=== PATIENT | male | born 1970 | race Caucasian/White ===

== ENCOUNTER 2023-06-06 11:06 | Outpatient (CLI) | payer OTHER, SELFPAY ==
[2023-06-06 18:32] LABS: Basophils Absolute Auto 0.1 K/mm3 (0.0-0.1); Basophils Percent Auto 0.7 % (0.2-1.2); Eosinophils Absolute Auto 0.2 K/mm3 (0-0.3); Eosinophils Percent Auto 3.1 % (0-4.4); Hematocrit 50.4 % (42.0-52.0); Hemoglobin 16.5 g/dL (14.0-18.0); Immature Granulocyte Absolute 0.04 K/mm3 (0.00-0.031); Immature Granulocyte Percent A 0.6 % (0-0.5); Lymphocytes Absolute Auto 1.81 K/mm3 (0.9-3.2); Lymphocytes Percent Auto 25.5 % (18.3-44.2); Mean Corpuscular HGB Conc 32.7 g/dl (32-36); Mean Corpuscular Hemoglobin 29.3 pg (26-34); Mean Corpuscular Volume 89.5 fl (80-100); Mean Platelet Volume 11.7 fl (7.4-10.4); Monocytes Absolute Auto 0.5 K/mm3 (0.1-0.6); Monocytes Percent Auto 7.5 % (2.6-8.5); Neutrophils Absolute Auto 4.4 K/mm3 (1.3-6.7); Neutrophils Percent Auto 62.6 % (45.5-73.1); Platelet Count Result 215 k/mm3 (150-375); Red Blood Count 5.63 M/mm3 (4.6-6.20); Red Cell Distribution Width 12.6 % (11.5-14.5); White Blood Count 7.1 K/mm3 (4.5-10.0)
[2023-06-06 18:57] LABS: Alanine Aminotransferase 48 U/L (6-50); Albumin Level 4.3 g/dL (3.5-5.1); Alkaline Phosphatase 99 U/L (38-126); Anion Gap 3 mmol/L (4-12); Aspartate Amino Transferase 37 U/L (17-59); Bilirubin,Total 0.8 mg/dL (0.2-1.3); Blood Urea Nitrogen 25 mg/dL (9-20); Calcium 9.4 mg/dL (8.4-10.2); Carbon Dioxide 30 mmol/L (22-30); Chloride 105 mmol/L (98-107); Cholesterol 214 mg/dL (0-200); Estimated Glomerular Filt Rate > 60; Glucose 113 mg/dL (65-110); HDL Direct 42 mg/dL; Potassium 4.2 mmol/L (3.4-5.0); Sodium 138 mmol/L (137-145); Triglycerides 147 mg/dL (<150)
[2023-06-06 19:08] LABS: LDL Cholesterol Direct 139 mg/dL
[2023-06-06 19:52] LABS: Hepatitis C Virus Antibody Negative (Negative)
[2023-06-06 20:09] LABS: Hemoglobin A1C 6.7 % (<5.7)
== END 2023-06-06 11:07 | disposition home or self-care (01) ==
LOC: ANHGOSHLAB 11:09
PROVIDERS: PCP Family Medicine; Visit Provider Family Medicine
DX: Z00.00 Encounter for general adult medical examination without abnormal findings (principal); Z11.59 Encounter for screening for other viral diseases
CPT/HCPCS: 36415; 80053; 80061; 83036; 84443; 85025; 86803

== ENCOUNTER 2023-07-05 07:35 | Day surgery (SDC) | payer OTHER, SELFPAY ==
[2023-07-05] VITALS (9 sets, daily range): BP systolic 109–150; BP diastolic 51–101; PULSE 64–87; RESP 15–19; TEMP 36.1–36.6; O2SAT 99–100
--- NOTE | ~2023-07-05 | CT_ITS ---
EXAMINATION: CT abdomen pelvis w con DATE: 07/05/2023 09:04 INDICATION: Right flank pain TECHNIQUE: Computed tomography (CT) of the abdomen and pelvis was performed without intravenous contr ast. Automated exposure control and iterative reconstruction technique were employed. The dose-length product was 1737.50 mGy-cm. COMPARISON: None FINDINGS: Mild dependent atelectasis in the right lower lobe. Heart size is normal. Atherosclerotic 1 artery ca lcifications. No pericardial or pleural effusion. Diffuse hepatic steatosis with focal sparing along the gallbladder fossa. Gallbladder, pancreas and bilateral adrenal glands are normal. There are 4 low -attenuation splenic lesions with a simple fluid attenuation most likely either splenic cysts or kat ngiomas. There are parapelvic cysts at both kidneys. There is likely also hydronephrosis of the right kidney which is difficult to differentiate from the parapelvic cysts. 15 x 7 x 6 mm stone at the rig ht ureteropelvic junction. There is an additional 5 x 3 mm density consistent with a stone at the rig ht ureterovesicular junction but with no more proximal hydroureter. There is mild colonic diverticulo sis with a sigmoid predominance. There is no adjacent inflammatory change to suggest diverticulitis. Small bowel and appendix are normal. No pathologically enlarged abdominal or pelvic lymphadenopathy. Small fat-containing left inguinal hernia. Moderate to severe lumbar spondylosis. IMPRESSION: 1. Right-sided urolithiasis with 15 x 7 x 6 mm on the right ureteropelvic junction and 5 x 3 mm stone at the ureterovesicular junction. There is likely at least mild right hydronephrosis although assess ment is completed by multiple bilateral renal parapelvic cysts. 2. Diffuse hepatic steatosis. Reviewed, dictated and finalized at location A. IMPRESSION: 1. Right-sided urolithiasis with 15 x 7 x 6 mm on the right ureteropelvic junct ion and 5 x 3 mm stone at the ureterovesicular junction. There is likely at [address] mild right hydronephrosis although assessment is completed by multiple bilat eral renal parapelvic cysts. 2. Diffuse hepatic steatosis.
--- NOTE | ~2023-07-05 | XR_ITS ---
EXAMINATION: XR retrograde pyelo w/stent RT DATE: 07/05/2023 12:03 INDICATION: Right internal ureteral stent placement TECHNIQUE: Fluoroscopic images from a right internal ureteral stent placement are submitted for mady martins 51 seconds of fluoroscopy time. 33 fluoroscopic images. FINDINGS: There is a right double-J internal ureteral stent projecting in expected position, with proximal [place] loop at the level of the renal pelvis and distal loop in the pelvis within the bladder lumen. IMPRESSION: 1. Right internal ureteral stent placement. Please refer to real-time procedural findings for milind caruso. Reviewed, dictated and finalized at location B. IMPRESSION: 1. Right internal ureteral stent placement. Please refer to real-time procedu ral findings for details.
[2023-07-05 08:05] LABS: Basophils Percent Auto 0.2 % (0.2-1.2); Eosinophils Absolute Auto 0.1 K/mm3 (0-0.3); Eosinophils Percent Auto 0.6 % (0-4.4); Hematocrit 46.9 % (42.0-52.0); Hemoglobin 15.7 g/dL (14.0-18.0); Immature Granulocyte Absolute 0.05 K/mm3 (0.00-0.031); Immature Granulocyte Percent A 0.6 % (0-0.5); Lymphocytes Absolute Auto 0.81 K/mm3 (0.9-3.2); Lymphocytes Percent Auto 9.3 % (18.3-44.2); Mean Corpuscular HGB Conc 33.5 g/dl (32-36); Mean Corpuscular Hemoglobin 29.4 pg (26-34); Mean Corpuscular Volume 87.8 fl (80-100); Monocytes Absolute Auto 0.6 K/mm3 (0.1-0.6); Monocytes Percent Auto 6.4 % (2.6-8.5); Neutrophils Absolute Auto 7.2 K/mm3 (1.3-6.7); Neutrophils Percent Auto 82.9 % (45.5-73.1); Platelet Count Result 188 k/mm3 (150-375); Red Blood Count 5.34 M/mm3 (4.6-6.20); Red Cell Distribution Width 12.6 % (11.5-14.5); White Blood Count 8.7 K/mm3 (4.5-10.0)
[2023-07-05 08:23] LABS: Potassium 4.4 mmol/L (3.4-5.0)
[2023-07-05 08:24] LABS: Alanine Aminotransferase 37 U/L (6-50); Albumin Level 4.3 g/dL (3.5-5.1); Alkaline Phosphatase 100 U/L (38-126); Anion Gap 5 mmol/L (4-12); Aspartate Amino Transferase 28 U/L (17-59); Blood Urea Nitrogen 25 mg/dL (9-20); Calcium 9.2 mg/dL (8.4-10.2); Carbon Dioxide 25 mmol/L (22-30); Chloride 105 mmol/L (98-107); Estimated CRCL calculation 78 ml/min; Estimated Glomerular Filt Rate 42; Glucose 137 mg/dL (65-110); Sodium 135 mmol/L (137-145)
[2023-07-05 08:24] LABS: Appearance Urine Cloudy (Clear); Bacteria Urine None Seen /hpf; Bilirubin Urine Negative (Negative); Blood Urine 3+ (Negative); Color Urine Yellow (Yellow); Glucose Urine UA Negative (Negative); Ketones Urine 1+ mg/dL (Negative); Leukocyte Esterase Ur Trace LEU/UL (Negative); Nitrate Urine Negative (Negative); Non Pathogenic Casts 0-2; Protein Urine Trace mg/dL (Negative); Specific Grav Ur 1.024 (1.001-1.035); Squamous Epithelial Cell Urine Occasional /hpf (Few); Uric Acid Crystals Urine Present /hpf; Urobilinogen Urine 0.2 mg/dL (<2.0); pH Urine 5.5 (5.0-9.0)
[2023-07-05 08:29] LABS: Add Urine Microscopic? YES
--- NOTE | 2023-07-05 08:31 | ED.MALEGU ---
HPI - Male Genitourinary General Chief complaint: Urogenital-Male Stated complaint: Kidney stone Time Seen by Provider: 07/05/23 08:30 Source: patient and other (fiance) Limitations: no limitations History of Present Illness HPI Narrative: Patient presents with right flank pain of 2 days duration. He describes it as sharp in nature and radiating to his abdomen and into his groin. He has noticed decreased urinary stream. He has no history of kidney stones. He denies any penile discharge. He notes that he did have some hematuria last week which then resolved. He denies any dysuria, urgency, frequency, rectal pain, or fever. Of note, patient is engaged and wedding planned for tomorrow, 07/06/2023 at [facility] [place]. Related Data Allergies Allergy/AdvReac Type Severity Reaction Status Date / Time latex AdvReac Mild Rash Verified 07/05/23 11:18 PMFSH Past Medical History Medical History Allergies Family History Family History Father Hypertension Diabetes mellitus Mother Diabetes mellitus Hypertension Social History Social History (Updated 07/05/23 @ 20:08 by Inessa Gonsalez MD) Smoking packs per day: 0 Smoking cigarettes per day: 0.0 Smoking status: Never smoker (cigarettes, nicotine products) Second hand tobacco smoke exposure: No Alcohol intake: current Drinks per week: 2 Alcohol use details: pt wants to 2- 3 a week bourbon Substance use: unknown Do You Feel Safe in your Home?: Yes Lack of Transportation: No Lack of Food: Never True Current Housing: I Have Housing Concerned About Future Housing: No Difficulty Paying Gas/Electric Bills: No Difficulty Paying for Meds: No Currently Unemployed: No Education: Bachelor's Degree Difficulty w/ Childcare or Family Care: No Gender identity (if verbalized by the patient): Male Additional gender identity comments: engaged Sexual Orientation (if Verbalized by the Patient): Straight or Heterosexual Exam Narrative: GENERAL: Well-appearing, well-nourished, does appear in moderate acute distress. HEAD: Normocephalic, atraumatic. EYES: Non injected, non icteric ENT: Nares clear, no rhinorrhea or epistaxis. NECK: Supple. CHEST: Speaking in full sentences. No respiratory distress. : No CVA tenderness bilaterally HEART: Regular rate and rhythm. . ABDOMEN: Soft, nondistended. EXTREMITIES: Normal range of motion. No edema. SKIN: Warm, dry, no rash. NEURO: No focal deficits. Alert and oriented x3. PSYCH: Normal mood and affect. Course Vital Signs Vital signs: Vital Signs Temperature 97.9 F 07/05/23 07:42 Pulse Rate 87 07/05/23 07:42 Respiratory Rate 18 07/05/23 07:42 Blood Pressure 141/101 H 07/05/23 07:42 Pulse Oximetry 99 07/05/23 07:42 Oxygen Delivery Room Air 07/05/23 07:42 Temperature 97.0 F L 07/05/23 12:10 Pulse Rate 65 07/05/23 13:40 Respiratory Rate 16 07/05/23 13:40 Blood Pressure 138/90 07/05/23 13:40 Pulse Oximetry 100 07/05/23 12:55 Oxygen Delivery Room Air 07/05/23 13:40 Oxygen Flow Rate 6 07/05/23 12:25 MDM - Male Genitourinary MDM Narrative Medical decision making narrative: Patient presents with right flank pain of 2 days duration radiating to his abdomen in his groin. In the emergency department he is afebrile with vital signs notable for hypertension. I do have significant concern for kidney stone based on symptoms. CBC unremarkable. He has evidence of an ELVIA. 2 L IV fluids ordered as is pain medication and CT imaging. Urinalysis with hematuria. CT notable for 2 stones, 1 that is smaller and likely the cause of his pain and [address] large[address] Dean, on-call urologist is consulted. Patient is taken to the operating room from the emergency department without plans at the time of admission to follow. Stable
[2023-07-05] MEDS: SODIUM CHLORIDE 0.9% IV 1,000 ML 999 ML IV CONT ×2 (08:39)
[2023-07-05] MEDS: MORPHINE SULFATE (*CRX) 4 MG/ML INJ IV PUSH (08:40)
[2023-07-05] MEDS: HYDROmorphone HCL INJ (*CRX) 1 MG/ML SYR 0.5 MG IV PUSH (09:49)
--- NOTE | 2023-07-05 10:59 | PM.HPGS ---
History of Present Illness History of Present Illness Consent: Risks, benefits, and alternatives have been discussed and questions answered. Patient agrees to proceed with procedure. Chief complaint: Kidney stone Narrative: Hossein Mccarthy is a 53 year old male without prior history of urolithiasis presents to the ER with severe right flank pain radiating to his right lower quadrant. It has been associated with some nausea but no vomiting. He has had no fever chills or gross hematuria. Imaging demonstrates a large 15 mm right UPJ stone in small partially obstructing 5 mm right distal ureteral stone. After discussion of options he elects for cystoscopy with right ureteral stone extraction and right ureteral stent placement. He is aware that he will need additional procedures for the larger proximal ureteral stone. This will allow him to, hopefully, go ahead with his plans for getting tomorrow. Review of Systems Review of Systems: All systems reviewed & are unremarkable except as noted in HPI and below PMFSH Past Medical History Medical History Allergies Family History Family History Father Hypertension Diabetes mellitus Mother Diabetes mellitus Hypertension Social History Social History (Updated 06/13/23 @ 11:55 by Radha Ellington MA) Smoking packs per day: 0 Smoking cigarettes per day: 0.0 Smoking status: Never smoker (cigarettes, nicotine products) Second hand tobacco smoke exposure: No Alcohol intake: current Drinks per week: 2 Alcohol use details: pt wants to 2- 3 a week bourbon Substance use: unknown Do You Feel Safe in your Home?: Yes Lack of Transportation: No Lack of Food: Never True Current Housing: I Have Housing Concerned About Future Housing: No Difficulty Paying Gas/Electric Bills: No Difficulty Paying for Meds: No Currently Unemployed: No Education: Bachelor's Degree Difficulty w/ Childcare or Family Care: No Meds Home Medications and Allergies Home Medications Medication Instructions Recorded Confirmed Type sildenafil (pulm.hypertension) 20 20 mg PO .PRN #60 tabs 06/06/23 06/13/23 Rx mg tablet atorvastatin 20 mg tablet 20 mg PO QHS #90 tabs 06/13/23 06/13/23 Rx blood-glucose meter,continuous #1 ea 06/13/23 06/13/23 Rx (FreeStyle Nery 3 [place]) blood-glucose sensor (FreeStyle #6 ea 06/13/23 06/13/23 Rx Nery 3 Sensor device) lisinopril 5 mg tablet 10 mg PO DAILY #90 tabs 06/13/23 06/13/23 Rx mecobalamin (vitamin B12) 1,000 1,000 mcg PO DAILY #90 tabs 06/13/23 06/13/23 Rx mcg chewable tablet metformin 500 mg tablet,extended See Rx Instructions PO DAILY #90 06/13/23 06/13/23 Rx release 24 hr tabs tirzepatide 2.5 mg/0.5 mL 2.5 mg (0.5 mL) subcut WEEKLY 4 06/13/23 06/13/23 Rx subcutaneous pen injector weeks #2 mL (Dawn) Allergies Allergy/AdvReac Type Severity Reaction Status Date / Time latex AdvReac Mild Rash Verified 07/05/23 07:35 Vital Signs Vital Signs - 24 hr 07/05/23 07:42 07/05/23 09:49 Temperature 97.9 F Pulse Rate 87 64 Respiratory Rate 18 19 Blood Pressure 141/101 H 142/85 H Pulse Oximetry 99 100 Oxygen Delivery Room Air Exam Const: General: no acute distress Resp: Effort & Inspection: normal respiratory effort GI: Inspection: non-distended GI Palp: No abdominal tenderness and No Guarding due to palpation present (GI) Auscultation: normal bowel sounds Assessment and Plan Assessment and plan (1) Right ureteral calculus: Code(s): N20.1 - Calculus of ureter Status: Acute Assessment and Plan: Cystoscopy, right ureteroscopy with distal ureteral stone extraction, right ureteral stent placement.
--- NOTE | 2023-07-05 11:01 | WPDHPUPDATE1 ---
History and Physical Update Update Date/Time: 07/05/23 11:01 History and Physical has been reviewed, including an updated exam of the patient. There are NO changes in the patient's condition. Risks, benefits, and alternatives have been discussed and questions answered. Patient agrees to proceed with procedure.
--- NOTE | 2023-07-05 11:17 | WPDANESEPPF ---
Anes - Initial Pre Proc Eval Procedure: Operation Date: 07/05/23 16:30 Proposed Procedures p Cystoscopy, Right Ureteroscopy, Right Ureteral Stent Placement, Stone Extraction - Tio Moreno MD Date/Time: 07/05/23 11:17 Surgeon: Tio Moreno MD Pre Op Diagnosis: Kidney stone Patient Data Age: 53 Gender: M Height: 2.01 m Weight: 168 kg Last Vital Signs Temp 97.9 F 07/05/23 07:42 Pulse 64 07/05/23 09:49 Resp 19 07/05/23 09:49 BP 142/85 H 07/05/23 09:49 Pulse Ox 100 07/05/23 09:49 O2 Del Method Room Air 07/05/23 07:42 Allergies Allergy/AdvReac Type Severity Reaction Status Date / Time latex AdvReac Mild Rash Verified 07/05/23 11:18 Home Medications Medication Instructions Recorded Confirmed Type sildenafil (pulm.hypertension) 20 20 mg PO .PRN #60 tabs 06/06/23 06/13/23 Rx mg tablet atorvastatin 20 mg tablet 20 mg PO QHS #90 tabs 06/13/23 06/13/23 Rx blood-glucose meter,continuous #1 ea 06/13/23 06/13/23 Rx (FreeStyle Nery 3 [place]) blood-glucose sensor (FreeStyle #6 ea 06/13/23 06/13/23 Rx Nery 3 Sensor device) lisinopril 5 mg tablet 10 mg PO DAILY #90 tabs 06/13/23 06/13/23 Rx mecobalamin (vitamin B12) 1,000 1,000 mcg PO DAILY #90 tabs 06/13/23 06/13/23 Rx mcg chewable tablet metformin 500 mg tablet,extended See Rx Instructions PO DAILY #90 06/13/23 06/13/23 Rx release 24 hr tabs tirzepatide 2.5 mg/0.5 mL 2.5 mg (0.5 mL) subcut WEEKLY 4 06/13/23 06/13/23 Rx subcutaneous pen injector weeks #2 mL (Mounmelidaro) Laboratory Tests 07/05/23 07/05/23 07:53 07:57 WBC 8.7 K/mm3 (4.5-10.0) RBC 5.34 M/mm3 (4.6-6.20) Hgb 15.7 g/dL (14.0-18.0) Hct 46.9 % (42.0-52.0) MCV 87.8 fl (80-100) MCH 29.4 pg (26-34) MCHC 33.5 g/dl (32-36) RDW 12.6 % (11.5-14.5) Plt Count 188 k/mm3 (150-375) MPV 11.0 H fl (7.4-10.4) Immature Gran % (Auto) 0.6 H % (0-0.5) Neut % (Auto) 82.9 H % (45.5-73.1) Lymph % (Auto) 9.3 L % (18.3-44.2) [place] % (Auto) 6.4 % (2.6-8.5) Eos % (Auto) 0.6 % (0-4.4) Baso % (Auto) 0.2 % (0.2-1.2) Lymph # (Auto) 0.81 L K/mm3 (0.9-3.2) [place] # (Auto) 0.6 K/mm3 (0.1-0.6) Eos # (Auto) 0.1 K/mm3 (0-0.3) Baso # (Auto) 0.0 K/mm3 (0.0-0.1) Abs Immat Gran (auto) 0.05 H K/mm3 (0.00-0.031) Absolute Neuts (auto) 7.2 H K/mm3 (1.3-6.7) Absolute Nucleated RBC 0.000 K/mm3 (0.0-0.012) Nucleated RBC % 0.0 % (0.0-0.2) Sodium 135 L mmol/L (137-145) Potassium 4.4 mmol/L (3.4-5.0) Chloride 105 mmol/L (98-107) Carbon Dioxide 25 mmol/L (22-30) Anion Gap 5 mmol/L (4-12) BUN 25 H mg/dL (9-20) Creatinine 1.70 H mg/dL (0.7-1.3) Estim Creat Clear Calc 78 ml/min Estimated GFR 42 L (59 - ) Glucose 137 H mg/dL (65-110) Calcium 9.2 mg/dL (8.4-10.2) Total Bilirubin 1.0 mg/dL (0.2-1.3) AST 28 U/L (17-59) ALT 37 U/L (6-50) Alkaline Phosphatase 100 U/L (38-126) Total Protein 8.0 g/dL (6.3-8.2) Albumin 4.3 g/dL (3.5-5.1) Urine Color Yellow (Yellow) Urine Appearance Cloudy H (Clear) Urine pH 5.5 (5.0-9.0) Ur Specific [place] 1.024 (1.001-1.035) Urine Protein Trace mg/dL (Negative) Urine Glucose (UA) Negative mg/dL (Negative) Urine Ketones 1+ H mg/dL (Negative) Ur Blood (Man) 3+ H (Negative) Urine Nitrate Negative (Negative) Urine Bilirubin Negative (Negative) Urine Urobilinogen 0.2 mg/dL (<2.0) Leukocyte Esterase Rfl Trace H MIKEY/UL (Negative) Urine RBC 11-20 H /hpf (0-2) Urine WBC 6-10 H /hpf (0-3) Ur Squamous Epith Cells Occasional /hpf (Few) Uric Acid Crystals Present H /hpf
[2023-07-05] MEDS: LACTATED RINGERS 1,000 ML 30 ML IV CONT (11:20)
[2023-07-05] MEDS: LIDOCAINE HCL 2% GEL UROJET 10 ML PKG MUCOUS MEM (11:57)
--- NOTE | 2023-07-05 12:09 | W.PM.PROC2 ---
Procedure Note - Detailed Date of Procedure 07/05/23 Pre-op Diagnosis Right ureteral stones (15 mm proximal / 5mm distal) Post-op Diagnosis Other (1. 15 mm right proximal ureteral stone 2. No distal ureteral stones 3. BPH with multiple small bladder stones) Procedure Performed Cystoscopy, right retrograde pyelography, right ureteroscopy, right ureteral stent placement Surgeon Tio Moreno MD Anesthesia General Description of Procedure patient is brought to the operative suite was prepped draped in routine sterile fashion while in dorsal lithotomy position after the uneventful induction of a general anesthetic. Cystoscopy was undertaken with 19 F rigid cystoscope. He has no urethral strictures but notable lateral lobe hyperplasia with a 2.5 cm prostatic urethra. In the bladder there were multiple tiny stones consistent with small bladder stones. The remainder the bladder was unremarkable without mucosal hyperemia. There was no intravesical neoplasm. He has a single orthotopic ureteral orifice bilaterally. A 0.035 in glidewire was advanced into the right renal pelvis and the distal ureter was dilated with an 8 F 10 F dilator. Distal ureteroscopy was undertaken with a short tapered semi-rigid ureteral scope. There are no identifiable distal ureteral stones and I think what had been interpreted on his recent CT is a distal ureteral stone is probably 1 of the small bladder stones. I did perform a right retrograde pyelogram to ensure placement on 4.8 F variable length stent with the proximal coil above his large right proximal ureteral stone in the renal pelvis the distal coil in the bladder. Scopes wires removed and he was taken recovery room good condition. Drains Yes Packing No Pathology None sent Complications No immediate complications
[2023-07-05 13:09] LABS: Glucose Point of Care 130 mg/dl (65-105)
== END 2023-07-05 13:53 | disposition home or self-care (01) ==
LOC: ANHED 10:37 → ANHSURGERY 10:52
PROVIDERS: Emergency Provider Student in an Organized Health Care Education/Training Program; PCP Family Medicine; Visit Provider Urology
PROC: (CPT 52352; principal; 2023-07-05 16:30)
DX: N20.1 Calculus of ureter (principal); N17.9 Acute kidney failure, unspecified; N39.0 Urinary tract infection, site not specified; N40.0 Benign prostatic hyperplasia without lower urinary tract symptoms; N21.0 Calculus in bladder; Z79.84 Long term (current) use of oral hypoglycemic drugs; Z79.85 Long-term (current) use of injectable non-insulin antidiabetic drugs; E66.01 Morbid (severe) obesity due to excess calories; Z68.41 Body mass index [BMI] 40.0-44.9, adult
CPT/HCPCS: 52332; 36415; 74177; 74420; 80053; 81001; 82948; 85025; 87086; 96365; 96375; 99285; C1769; C2617; J0696; J1170; J1885; J2250; J2270; J2405; J2704; J3010; J7030; J7120; Q9966; Q9967

== ENCOUNTER 2023-07-16 09:41 | Outpatient (CLI) | payer OTHER, SELFPAY ==
--- NOTE | 2023-07-16 10:05 | ECG_ITS ---
SEE SCANNED COPY FOR CONFIRMED REPORT MTDD
[2023-07-16 10:35] LABS: Prothrombin Time 13.5 Seconds (11.1-14.7)
[2023-07-16 10:36] LABS: Partial Thromboplastin Time 27.1 Seconds (22.3-36.8)
== END 2023-07-16 09:42 | disposition home or self-care (01) ==
LOC: ANHSURGERY 09:46
PROVIDERS: PCP Family Medicine; Visit Provider Urology
DX: N20.1 Calculus of ureter (principal); I10 Essential (primary) hypertension; Z01.818 Encounter for other preprocedural examination
CPT/HCPCS: 36415; 85610; 85730; 93005

== ENCOUNTER 2023-07-19 01:29 | Day surgery (SDC) | payer OTHER, SELFPAY ==
[2023-07-12 09:13] VITALS: BMI 41.7
--- NOTE | 2023-07-12 09:18 | PC.NURSE ---
Addendum entered by Silvia Flowers RN 07/13/23 10:46: May take pain pill (hydrocodone) morning of surgery with a small sip of water if needed. Follow instructions from Dr. Moreno/office regarding ketorolac. Original Note: Report to the Outpatient Waiting Room, entrance under the green pavilion located off [facility], at time _1200__ on date _07/19/23_. Planned Procedure Time: _1400. Time changes happen often and if your time is changed the preop area will call you the afternoon before. - You and your visitor will be asked to self-screen and do not enter if you have any COVID symptoms. - A mask is optional within the hospital at this time. Patients may have clear liquids (water, carbonated beverages, clear teas, apple juice) until 3 hours prior to surgery with a maximum of 20 ounces. - No food from midnight until time of surgery - Infants may have breast milk until 4 hours before surgery, infant formula 6 hours prior to surgery. - Children will be allowed to drink immediately following surgery. If applicable, please bring a bottle or sippy cup to assist with drinking. Juice, water, soda, and popsicles are readily available. For infants on formula, please bring formula the day of surgery. Pacifiers are allowed. Take the following medications with a SIP of water the morning of surgery: ____NONE DO NOT STOP ANY OF YOUR OTHER PRESCRIPTION MEDICATIONS PRIOR TO SURGERY ?EXCEPT THE FOLLOWING Medications to discontinue per physician HAS NOT STARTED VITAMIN YET Date to take last dose Please no make-up, nail uzbek, hairspray, perfume, deodorant, or body powder the day of surgery. No jewelry (including any body piercings) or valuables the day of surgery, leave them at home. Please take a shower or bath the night before, or the morning of, surgery with an antibacterial soap. Wear comfortable, loose fitting clothing. Children are encouraged to wear pajamas. - Jewelry must be removed prior to entering the operating room. Rings and piercings that are not removed may be cut off. - The hospital will not accept responsibility for valuables. - Please leave all valuables, including medications, at home the day of surgery. If you are going home after surgery, a licensed wagon driver must drive you home. - NO public transportation without another adult if you receive anesthesia. - We recommend that an adult stay with you for 24 hours following discharge. - We also recommend that you do not drive, make important decision, drink alcoholic beverages, or take any drugs that were not prescribed by your health care provider for at least 24 hours after your discharge time. For Pediatric surgeries, we recommend two adults accompany the child home. Follow any additional instructions given to you from your surgeon. If you or anyone in your household have experienced Covid symptoms in the past week, please notify your surgeon or the nurse liaison at the phone number below for possible testing. Telephone instructions given to DORIAN__and asked if any additional questions and then verbalized understanding. Patient advised to call surgeon office or pre surgery nurse liaison [phone] if any additional questions.
--- NOTE | 2023-07-13 07:26 | PM.HPGS ---
History of Present Illness History of Present Illness Consent: Risks, benefits, and alternatives have been discussed and questions answered. Patient agrees to proceed with procedure. Chief complaint: right kidney stone Narrative: Hossein Mccarthy is a 53 year old male recently presented to the emergency department on the day prior to his scheduled waiting with a painful obstructing distal ureteral calculus and larger proximal ureteral calculus. We took him to the OR and did extraction of bladder and possible distal ureteral stones with placement of right ureteral stent. He now presents for definitive management of the larger stone his right kidney. He is aware the risks include, not limited to, need for additional procedures, hematuria, perinephric hematoma Review of Systems Cardiovascular: Cardiovascular: Denies chest pain, Denies lightheadedness, Denies palpitations and Denies dyspnea Respiratory: Respiratory: Denies dyspnea Gastrointestinal: Gastrointestinal: Denies diarrhea, Denies nausea and Denies vomiting Genitourinary: Genitourinary: Denies hematuria and Denies dysuria Endocrine: Endocrine: Denies palpitations PMFSH Past Medical History Medical History Allergies Family History Family History Father Hypertension Diabetes mellitus Mother Diabetes mellitus Hypertension Social History Social History (Updated 07/05/23 @ 20:08 by Inessa Gonsalez MD) Smoking packs per day: 0.5 Smoking cigarettes per day: 10.0 Years smoked: 6 Smoking pack-years: 3.00 Smoking status: Former smoker Tobacco type: cigarettes Second hand tobacco smoke exposure: No Alcohol intake: current Drinks per week: 2 Alcohol use details: 2 PER MONTH Substance use: never Do You Feel Safe in your Home?: Yes Lack of Transportation: No Lack of Food: Never True Current Housing: I Have Housing Concerned About Future Housing: No Difficulty Paying Gas/Electric Bills: No Difficulty Paying for Meds: No Currently Unemployed: No Education: Bachelor's Degree Difficulty w/ Childcare or Family Care: No Living arrangements: with family Gender identity (if verbalized by the patient): Male Additional gender identity comments: engaged Sexual Orientation (if Verbalized by the Patient): Straight or Heterosexual Meds Home Medications and Allergies Home Medications Medication Instructions Recorded Confirmed Type sildenafil (pulm.hypertension) 20 20 mg PO .PRN #60 tabs 03/27/24 05/02/24 Rx mg tablet blood-glucose meter,continuous #1 ea 06/13/23 06/13/23 Rx (FreeStyle Nery 3 [place]) blood-glucose sensor (FreeStyle #6 ea 06/13/23 06/13/23 Rx Nery 3 Sensor device) mecobalamin (vitamin B12) 1,000 1,000 mcg PO DAILY #90 tabs 06/13/23 07/12/23 Rx mcg chewable tablet hydrocodone 5 mg-acetaminophen 325 1 - 2 tablet PO Q6H PRN severe 07/05/23 07/12/23 Rx mg tablet pain (scale score 7-10) #20 tabs ketorolac 10 mg tablet 10 mg PO Q6H PRN Moderate Pain 07/05/23 07/12/23 Rx (Scale Score 5-6) 5 days #20 tabs ondansetron HCl 8 mg tablet 8 mg PO Q8H PRN nausea and 07/05/23 07/12/23 Rx vomiting #12 tabs lisinopril 5 mg tablet 5 mg PO DAILY 07/12/23 07/12/23 History Allergies Allergy/AdvReac Type Severity Reaction Status Date / Time latex AdvReac Mild Rash Verified 07/12/23 09:05 Exam Const: General: no acute distress Resp: Effort & Inspection: normal respiratory effort GI: Inspection: non-distended GI Palp: No abdominal tenderness and No Guarding due to palpation present (GI) Auscultation: normal bowel sounds Assessment and Plan Assessment and plan (1) Urolithiasis: Code(s): N20.9 - Urinary calculus, unspecified Status: Acute (2) Right ureteral calculus: Code(s): N20.1 - Calculus of ureter Status: Acute As
--- NOTE | ~2023-07-19 | XR_ITS ---
EXAMINATION: XR abdomen/kub 1V DATE: 07/19/2023 12:11 INDICATION: Kidney stone. TECHNIQUE: A supine view of the abdomen on 2 radiographs was obtained. COMPARISON: CT abdomen and pelvis 07/05/2023 FINDINGS: There are no dilated loops of bowel. There is a right internal ureteral stent in expected p osition. There are phleboliths in the pelvis. IMPRESSION: 1. No visible urolithiasis. Right internal ureteral stent in expected position. Reviewed, dictated and finalized at location A.
--- NOTE | 2023-07-19 06:18 | WPDHPUPDATE1 ---
History and Physical Update Update Date/Time: 07/19/23 06:18 History and Physical has been reviewed, including an updated exam of the patient. There are NO changes in the patient's condition. Risks, benefits, and alternatives have been discussed and questions answered. Patient agrees to proceed with procedure.
[2023-07-19 12:40] VITALS: BP 124/104; PULSE 93; RESP 14; TEMP 36.6; O2SAT 98
--- NOTE | 2023-07-19 12:53 | WPDANESEPPF ---
Anes - Initial Pre Proc Eval Procedure: Operation Date: 07/19/23 15:00 Proposed Procedures p Right Extracorporeal Shock Wave Lithotripsy, - Tio Moreno MD s Cystoscopy, Right Stent Removal/Replacement - Toi Moreno MD Date/Time: 07/19/23 12:53 Surgeon: Tio Moreno MD Pre Op Diagnosis: right kidney stone Patient Data Age: 53 Gender: M Height: 2.01 m Weight: 168.3 kg Last Vital Signs Temp 36.6 C 07/19/23 12:40 Pulse 93 07/19/23 12:40 Resp 14 07/19/23 12:40 BP 124/104 H 07/19/23 12:40 Pulse Ox 98 07/19/23 12:40 O2 Del Method Room Air 07/19/23 12:40 Allergies Allergy/AdvReac Type Severity Reaction Status Date / Time latex AdvReac Mild Rash Verified 07/12/23 09:05 Home Medications Medication Instructions Recorded Confirmed Type sildenafil (pulm.hypertension) 20 20 mg PO .PRN #60 tabs 06/06/23 07/12/23 Rx mg tablet blood-glucose meter,continuous #1 ea 06/13/23 06/13/23 Rx (FreeStyle Nery 3 [place]) blood-glucose sensor (FreeStyle #6 ea 06/13/23 06/13/23 Rx Nery 3 Sensor device) mecobalamin (vitamin B12) 1,000 1,000 mcg PO DAILY #90 tabs 06/13/23 07/12/23 Rx mcg chewable tablet hydrocodone 5 mg-acetaminophen 325 1 - 2 tablet PO Q6H PRN severe 07/05/23 07/12/23 Rx mg tablet pain (scale score 7-10) #20 tabs ketorolac 10 mg tablet 10 mg PO Q6H PRN Moderate Pain 07/05/23 07/12/23 Rx (Scale Score 5-6) 5 days #20 tabs ondansetron HCl 8 mg tablet 8 mg PO Q8H PRN nausea and 07/05/23 07/12/23 Rx vomiting #12 tabs lisinopril 5 mg tablet 5 mg PO DAILY 07/12/23 07/12/23 History Patient hx anesthesia problems: none Family hx anesthesia problems: none Results Review: All pre-operative results and documents have been reviewed as part of the pre-operative evaluation. [facility] Past Medical History Medical History (Updated 07/19/23 @ 12:53 by Oleksandr Arredondo MD) Allergies BMI 40.0-44.9, adult Essential hypertension Type 2 diabetes mellitus with hyperglycemia Surgical History Surgical History (Updated 07/19/23 @ 12:53 by Oleksandr Arredondo MD) Hx of cystoscopy Family History Family History Father Hypertension Diabetes mellitus Mother Diabetes mellitus Hypertension Social History Social History Smoking packs per day: 0.5 Smoking cigarettes per day: 10.0 Years smoked: 6 Smoking pack-years: 3.00 Smoking status: Former smoker Tobacco type: cigarettes Second hand tobacco smoke exposure: No Alcohol intake: current Drinks per week: 2 Alcohol use details: 2 PER MONTH Substance use: never Do You Feel Safe in your Home?: Yes Lack of Transportation: No Lack of Food: Never True Current Housing: I Have Housing Concerned About Future Housing: No Difficulty Paying Gas/Electric Bills: No Difficulty Paying for Meds: No Currently Unemployed: No Education: Bachelor's Degree Difficulty w/ Childcare or Family Care: No Living arrangements: with family Gender identity (if verbalized by the patient): Male Additional gender identity comments: engaged Sexual Orientation (if Verbalized by the Patient): Straight or Heterosexual Anes - Eval Final PreProcedure Day of Procedure 07/19/23 12:53 Patient weight: morbidly obese Heart: regular rate and rhythm Lungs: clear to auscultation Airway: Mallampati scale class II Neurological: alert and oriented Last oral intake: >/= 8 hours ASA classification: III Emergent: no Anesthetic plan: proceed Anesthesia type and monitoring: general LMA and standard monitoring Results Review: All pre-operative results and documents have been reviewed as part of the pre-operative evaluation. Informed Consent: The patient's anesthetic plan and its attendant risks and benefits were discussed with the patient/family/POA. Questions were solicited and answers provide
[2023-07-19 12:54] LABS: Glucose Point of Care 109 mg/dl (65-105)
[2023-07-19] MEDS: LACTATED RINGERS 1,000 ML 30 ML IV CONT (12:59)
[2023-07-19] MEDS: ceFAZolin 3 GM/D5W 100 ML 100 ML IVPB (13:31)
[2023-07-19] MEDS: LIDOCAINE HCL 2% GEL UROJET 10 ML PKG MUCOUS MEM (13:57)
--- NOTE | 2023-07-19 14:07 | W.PM.PROC2 ---
Procedure Note - Detailed Date of Procedure 07/19/23 Pre-op Diagnosis Rght kidney stone Post-op Diagnosis Same Procedure Performed Cystoscopy, right stent removal, right retrograde pyelogram, right ESWL, right stent replacement Surgeon Tio Moreno MD Anesthesia General Description of Procedure Patient is brought to the operative suite was prepped draped in routine sterile fashion while in a supine position. Cystoscopy was undertaken with a 16 F flexible cystoscope. The tip of the indwelling stent is grasped and brought to the external urethral meatus. A 0.035 in glidewire was advanced in the right renal pelvis under fluoroscopy. A [place] catheter was passed over the wire and used to obtain a retrograde pyelogram. His 15 mm stone is clearly identified as a filling defect in the renal pelvis. Total of 2500 shocks were delivered at a power setting up to 4. A 4.8 F right variable length ureteral stent was replaced with the proximal coil in the renal pelvis distal coil in the bladder. Scopes and wires removed and he was taken recovery room good condition Drains No Packing No Pathology None sent Complications No immediate complications Condition Stable
[2023-07-19 14:30] VITALS: BP 126/74; PULSE 66; RESP 17; TEMP 36.1; O2SAT 100
[2023-07-19 14:38] LABS: Glucose Point of Care 99 mg/dl (65-105)
[2023-07-19 14:45] VITALS: BP 140/82; PULSE 71; RESP 12; O2SAT 96
[2023-07-19 14:57] VITALS: BP 134/78; PULSE 66; RESP 12; O2SAT 96
[2023-07-19 15:01] VITALS: BP 144/93; PULSE 60; RESP 14
[2023-07-19 15:30] VITALS: BP 140/88; PULSE 60; RESP 20
== END 2023-07-19 15:35 | disposition home or self-care (01) ==
PROVIDERS: PCP Family Medicine; Visit Provider Urology
PROC: (CPT 50590; principal; 2023-07-19 15:00)
PROC: (CPT 52352; 2023-07-19 15:00)
DX: N20.0 Calculus of kidney (principal); I10 Essential (primary) hypertension; E11.65 Type 2 diabetes mellitus with hyperglycemia; E66.01 Morbid (severe) obesity due to excess calories; Z68.41 Body mass index [BMI] 40.0-44.9, adult; Z79.891 Long term (current) use of opiate analgesic; Z87.891 Personal history of nicotine dependence
CPT/HCPCS: 50590; 52332; 36415; 74018; 82948; 85610; 85730; 93005; C1758; C1769; C2617; J0690; J2250; J3010; J7030; J7120; Q9966

== ENCOUNTER 2023-08-03 13:43 | Outpatient (CLI) | payer OTHER, SELFPAY ==
--- NOTE | ~2023-08-03 | CT_ITS ---
EXAMINATION: CT abdomen pelvis wo con DATE: 08/03/2023 14:19 INDICATION: Kidney stone TECHNIQUE: Computed tomography (CT) of the abdomen and pelvis was performed without intravenous contr ast. Automated exposure control and iterative reconstruction technique were employed. The dose-length product was 1443.35 mGy-cm. COMPARISON: None FINDINGS: Lung bases are clear. Heart size is normal. Atherosclerotic coronary artery calcific lesion. No peric ardial or pleural effusion. Diffuse hepatic steatosis with focal sparing along the gallbladder fossa. No interval change in a few low-attenuation lesions of the spleen measuring up to 2 cm likely either cysts or hemangiomas. Gallbladder, pancreas and bilateral adrenal glands are normal. There are multi ple parapelvic cysts at both kidneys. Right internal ureteral stent with loops formed in the bladder and right renal pelvis. 8 x 7 mm irregular stone or more likely cluster of stone fragments within add itional 3 mm likely stone fragment at a couple calyces at the lower pole of the right kidney. No uret eral stones seen along the right internal ureteral stent. No left-sided urolithiasis. Mild scattered diverticulosis without adjacent from trace stranding to suggest diverticulitis. Small bowel and appen river are normal. The latter is normal. Small fat-containing bilateral direct inguinal hernias. No free intraperitoneal gas or fluid. No pathologically enlarged abdominal or pelvic lymphadenopathy. Modera te to severe lumbar and lower thoracic spondylosis. IMPRESSION: 1. Interval placement of a right internal ureteral stent with a few stones or more likely stone fragm ents at the lower pole calyces of the right kidney. No residual stones along the right ureter. 2. Likely resolution of the prior right hydronephrosis although assessment is somewhat comp care by t he presence of multiple bilateral peripelvic cysts. 3. Diffuse hepatic steatosis. Reviewed, dictated and finalized at location A. IMPRESSION: 1. Interval placement of a right internal ureteral stent with a few stones or m ore likely stone fragments at the lower pole calyces of the right kidney. No re sidual stones along the right ureter. 2. Likely resolution of the prior right hydronephrosis although assessment is s omewhat comp care by the presence of multiple bilateral peripelvic cysts. 3. Diffuse hepatic steatosis.
== END 2023-08-03 13:44 | disposition home or self-care (01) ==
LOC: ANHIMG 13:44
PROVIDERS: PCP Family Medicine; Visit Provider Urology
DX: N20.0 Calculus of kidney (principal); Z96.0 Presence of urogenital implants; K76.0 Fatty (change of) liver, not elsewhere classified; N13.30 Unspecified hydronephrosis
CPT/HCPCS: 74176

== ENCOUNTER 2023-08-17 14:21 | Emergency (ER) | payer OTHER, SELFPAY ==
--- NOTE | ~2023-08-17 | CT_ITS ---
EXAMINATION: CT abdomen pelvis wo con DATE: 08/17/2023 15:26 INDICATION: Right flank pain. TECHNIQUE: Computed tomography (CT) of the abdomen and pelvis was performed without intravenous contr ast. Automated exposure control and iterative reconstruction technique were employed. The dose-length product was 1676.84 mGy-cm. COMPARISON: CT abdomen and pelvis 08/03/2023, 07/05/23 FINDINGS: The visualized portions of the lung bases demonstrate mild atelectasis. No pleural effusion . The heart size is normal. No pericardial effusion. There is diffuse hepatic steatosis. There are mu ltiple hypodense masses in the spleen measuring up to 1.9 cm, likely granulomatous disease. The gallb ladder, pancreas, and adrenal glands are normal. There are peripelvic cysts in the kidneys measuring up to 3.6 cm on the left. There is a 3 mm stone in right kidney. There is a 4 mm stone in right renal pelvis. There is mild right hydronephrosis and hydroureter. There is a 5 mm stone in proximal right ureter. There is a 4 mm stone at right ureterovesicular junction. There are 3 mm and 2 mm stones in t he bladder. There are bilateral inguinal hernias containing fat. There is diverticulosis of the colon without evidence of diverticulitis. There are no dilated loops of bowel. The appendix is normal. The re are no pathologically enlarged lymph nodes. There is no free intraperitoneal fluid. There is sever e thoracic and lumbar spondylosis. There is mild chronic anterior wedging of multiple vertebral adama s. IMPRESSION: 1. 5 mm stone in proximal right ureter and 4 mm stone at right ureterovesicular junction with mild ri ght hydronephrosis and hydroureter. 2. Nonobstructing right kidney stones. Bladder stones. Reviewed, dictated and finalized at location A. IMPRESSION: 1. 5 mm stone in proximal right ureter and 4 mm stone at right ureterovesicular junction with mild right hydronephrosis and hydroureter. 2. Nonobstructing right kidney stones. Bladder stones.
[2023-08-17 14:34] VITALS: BP 157/94; PULSE 72; RESP 15; TEMP 36.4; O2SAT 96
--- NOTE | 2023-08-17 15:23 | ED.GENADULT ---
HPI - General Adult General Chief complaint: Back Pain/Injury Stated complaint: kidney stones Time Seen by Provider: 08/17/23 15:09 History of Present Illness HPI narrative: This is a 53-year-old male history of kidney stones presenting with right flank pain. Patient had a stent placed by Dr. Moreno in June. It was removed on 07/19/23. Yesterday and today he has intermittent sharp pain in his right flank that radiates to his groin. No urinary symptoms. No fever chills nausea vomiting or diarrhea. He has not taken anything for pain. Related Data Home Medications Medication Instructions Recorded Confirmed lisinopril 5 mg tablet 5 mg PO DAILY 07/12/23 08/13/23 Allergies Allergy/AdvReac Type Severity Reaction Status Date / Time latex AdvReac Mild Rash Verified 08/13/23 09:54 [facility] Past Medical History Medical History Allergies BMI 40.0-44.9, adult Essential hypertension Type 2 diabetes mellitus with hyperglycemia Surgical History Surgical History Hx of cystoscopy Family History Family History Father Hypertension Diabetes mellitus Mother Diabetes mellitus Hypertension Social History Social History Smoking packs per day: 0.5 Smoking cigarettes per day: 10.0 Years smoked: 6 Smoking pack-years: 3.00 Smoking status: Former smoker Tobacco type: cigarettes Second hand tobacco smoke exposure: No Alcohol intake: current Drinks per week: 2 Alcohol use details: 2 PER MONTH Substance use: never Do You Feel Safe in your Home?: Yes Lack of Transportation: No Lack of Food: Never True Current Housing: I Have Housing Concerned About Future Housing: No Difficulty Paying Gas/Electric Bills: No Difficulty Paying for Meds: No Currently Unemployed: No Education: Bachelor's Degree Difficulty w/ Childcare or Family Care: No Living arrangements: with family Gender identity (if verbalized by the patient): Male Additional gender identity comments: engaged Sexual Orientation (if Verbalized by the Patient): Straight or Heterosexual Exam Narrative: APPEARANCE: No apparent distress. Head: atraumatic. EYES: EOMI, NOSE: Atraumatic NECK: Trachea midline RESPIRATORY: No increased rate of breathing CARDIOVASCULAR: RRR, ABDOMINAL: soft nontender guarding rebound. No right CVA tenderness MUSCULOSKELETAl: No obvious deformities NEURO: Alert. Moving 4/4 extremities SKIN:: Warm, dry. Normal color PSYCHIATRIC: Normal affect Course Vital Signs Vital signs: Vital Signs Temperature 97.6 F 08/17/23 14:34 Pulse Rate 72 08/17/23 14:34 Respiratory Rate 15 08/17/23 14:34 Blood Pressure 157/94 H 08/17/23 14:34 Pulse Oximetry 96 08/17/23 14:34 Temperature 97.6 F 08/17/23 14:34 Pulse Rate 68 08/17/23 17:10 Respiratory Rate 16 08/17/23 17:10 Blood Pressure 140/87 08/17/23 17:10 Pulse Oximetry 99 08/17/23 17:10 Medical Decision Making MDM Narrative Medical decision making narrative: -Course: this is a 53-year-old male with known history of kidney stones with right flank pain. CT abdomen pelvis showed 5 mm and 4 mm stones in the right ureter. Pain was controlled in the ED. Urine not indicative infection. Case was discussed Dr. Moreno will see him in clinic early next week. Patient discharged with Flomax and pain medication -DDX includes but is not limited to: kidney stone, muscle strain, pyelo, infected stone -Co-morbidities complicating care: history of kidney stones -Independent interpretation of studies: labs reviewed. urine not indicative infection CT showed 5 mm and 4 mm stones in the ureter. -Discussion of Management/Consultants:Josh -Interventions: dilaudid normal saline, Toradol, Tylenol -
[2023-08-17] MEDS: SODIUM CHLORIDE 0.9% IV 1,000 ML 999 ML IV CONT (15:52)
[2023-08-17] MEDS: ONDANSETRON INJ 4 MG/2 ML VIAL IV PUSH (15:52)
[2023-08-17 15:57] LABS: Basophils Percent Auto 0.3 % (0.2-1.2); Eosinophils Percent Auto 0.1 % (0-4.4); Hematocrit 45.3 % (42.0-52.0); Hemoglobin 14.9 g/dL (14.0-18.0); Immature Granulocyte Absolute 0.13 K/mm3 (0.00-0.031); Immature Granulocyte Percent A 1.1 % (0-0.5); Lymphocytes Absolute Auto 1.15 K/mm3 (0.9-3.2); Mean Corpuscular HGB Conc 32.9 g/dl (32-36); Mean Corpuscular Hemoglobin 29.6 pg (26-34); Mean Corpuscular Volume 89.9 fl (80-100); Mean Platelet Volume 10.8 fl (7.4-10.4); Monocytes Absolute Auto 0.6 K/mm3 (0.1-0.6); Monocytes Percent Auto 4.8 % (2.6-8.5); Neutrophils Absolute Auto 9.6 K/mm3 (1.3-6.7); Neutrophils Percent Auto 83.7 % (45.5-73.1); Platelet Count Result 225 k/mm3 (150-375); Red Blood Count 5.04 M/mm3 (4.6-6.20); Red Cell Distribution Width 13.2 % (11.5-14.5); White Blood Count 11.5 K/mm3 (4.5-10.0)
[2023-08-17] MEDS: HYDROmorphone HCL INJ (*CRX) 1 MG/ML SYR 0.5 MG IV PUSH (16:02)
[2023-08-17 16:04] LABS: Appearance Urine Clear (Clear); Bacteria Urine None Seen /hpf; Bilirubin Urine Negative (Negative); Blood Urine 2+ (Negative); Color Urine Yellow (Yellow); Glucose Urine UA Negative (Negative); Ketones Urine Negative (Negative); Leukocyte Esterase Ur Trace LEU/UL (Negative); Nitrate Urine Negative (Negative); Non Pathogenic Casts 0-2; Protein Urine Negative (Negative); Specific Grav Ur 1.023 (1.001-1.035); Squamous Epithelial Cell Urine None Seen /hpf (Few); Urobilinogen Urine 0.2 mg/dL (<2.0); WBC Urine 0-5 /hpf (0-3)
[2023-08-17 16:15] LABS: Add Urine Microscopic? YES
[2023-08-17 16:38] LABS: Alanine Aminotransferase 33 U/L (6-50); Albumin Level 4.2 g/dL (3.5-5.1); Alkaline Phosphatase 82 U/L (38-126); Anion Gap 7 mmol/L (4-12); Aspartate Amino Transferase 20 U/L (17-59); Bilirubin,Total 0.6 mg/dL (0.2-1.3); Blood Urea Nitrogen 34 mg/dL (9-20); Calcium 9.2 mg/dL (8.4-10.2); Carbon Dioxide 24 mmol/L (22-30); Chloride 108 mmol/L (98-107); Estimated CRCL calculation 93 ml/min; Estimated Glomerular Filt Rate 53; Glucose 107 mg/dL (65-110); Potassium 4.3 mmol/L (3.4-5.0); Sodium 139 mmol/L (137-145)
[2023-08-17] MEDS: ACETAMINOPHEN 500 MG TABLET 1000 MG PO (17:03)
[2023-08-17] MEDS: KETOROLAC 15 MG/ML VIAL (*BKC) IV PUSH (17:03)
[2023-08-17 17:10] VITALS: BP 140/87; PULSE 68; RESP 16; O2SAT 99
== END 2023-08-17 17:10 | disposition home or self-care (01) ==
PROVIDERS: Emergency Provider Emergency Medicine; PCP Family Medicine
DX: N20.0 Calculus of kidney (principal); I10 Essential (primary) hypertension; E11.9 Type 2 diabetes mellitus without complications; E66.01 Morbid (severe) obesity due to excess calories; Z68.41 Body mass index [BMI] 40.0-44.9, adult; Z87.891 Personal history of nicotine dependence
CPT/HCPCS: 36415; 74176; 80053; 81001; 85025; 96361; 96374; 96375; 99284; A9270; J1170; J1885; J2405; J7030

== ENCOUNTER 2023-08-20 14:41 | Outpatient (CLI) | payer OTHER, SELFPAY ==
--- NOTE | ~2023-08-20 | XR_ITS ---
XR abdomen/kub 1V Ordering provider: Shauna Stephenson PA-C History: . KIDNEY STONE, PT STATES HE PASSED A STONE YESTERDAY . Comparison: July 19, 2023 FINDINGS: BOWEL: Nonobstructive bowel gas pattern. ORGANOMEGALY: None. SIGNIFICANT PATHOLOGIC CALCIFICATIONS: Calcifications in the pelvis unchanged from previous examinati on most likely represent phleboliths. OTHER: Degenerative spine. No free air is seen under the diaphragm. Status post removal of the right IMPRESSION: NO definite ACUTE ABDOMINAL FINDINGS. Reviewed, dictated and finalized at location A.
== END 2023-08-20 14:42 | disposition home or self-care (01) ==
LOC: ANHIMG 14:42
PROVIDERS: PCP Family Medicine; Visit Provider Physician Assistant
DX: N20.0 Calculus of kidney (principal)
CPT/HCPCS: 74018

== ENCOUNTER 2023-10-02 08:47 | Outpatient (CLI) | payer OTHER, SELFPAY ==
--- NOTE | ~2023-10-02 | CT_ITS ---
EXAMINATION: CT abdomen pelvis wo/w con DATE: 10/02/2023 09:42 INDICATION: Kidney stones TECHNIQUE: Computed tomography (CT) of the abdomen and pelvis was performed without and with 130 cc o f opaque 350 intravenous contrast. The dose-length product was 2499.59 mGy-cm. Automated exposure con trol and iterative reconstruction technique were employed. COMPARISON: CT dated 08/17/2023. FINDINGS: Lung bases are unremarkable. Heart size normal. No significant pleural or pericardial effus ion. There are bilateral renal peripelvic and right renal cysts. There is mild nonspecific left periu reteral stranding. Fatty infiltration of the liver. Ureters are normal in course and caliber without evidence for stones. There are right renal cysts. Small low-density lesions in the spleen, most likel y benign cysts. Gallbladder is present. The pancreas, adrenal glands are unremarkable. Nonobstructive bowel gas patte rn. Bladder is unremarkable. No renal stones or bladder stones are identified. No significant vascula r abnormality. No lymphadenopathy. Moderate-severe lower thoracic and lumbar spondylosis. IMPRESSION: 1. Nonspecific proximal left ureteral periureteral stranding, unchanged from prior study. Consider as cending urinary tract infection in the appropriate clinical setting. 2: Hepatic steatosis. Reviewed, dictated and finalized at location B. IMPRESSION: 1. Nonspecific proximal left ureteral periureteral stranding, unchanged from pr ior study. Consider ascending urinary tract infection in the appropriate clinic al setting. 2: Hepatic steatosis.
[2023-10-02 09:17] LABS: Estimated Glomerular Filt Rate 53
== END 2023-10-02 08:48 ==
PROVIDERS: PCP Family Medicine; Visit Provider Physician Assistant
DX: N20.0 Calculus of kidney (principal); K76.0 Fatty (change of) liver, not elsewhere classified
CPT/HCPCS: 74178; Q9967

== ENCOUNTER 2023-10-25 14:55 | Outpatient (CLI) | payer OTHER, SELFPAY ==
[2023-10-25 18:05] LABS: Anion Gap 11 mmol/L (4-12); Blood Urea Nitrogen 31 mg/dL (9-20); Calcium 9.4 mg/dL (8.4-10.2); Carbon Dioxide 27 mmol/L (22-30); Chloride 100 mmol/L (98-107); Cholesterol 215 mg/dL (0-200); Estimated Glomerular Filt Rate > 60; Glucose 91 mg/dL (65-110); HDL Direct 41 mg/dL; Potassium 4.3 mmol/L (3.4-5.0); Sodium 138 mmol/L (137-145); Triglycerides 111 mg/dL (<150)
[2023-10-25 18:16] LABS: LDL Cholesterol Direct 116 mg/dL
[2023-10-25 18:35] LABS: Hemoglobin A1C 5.7 % (<5.7)
== END 2023-10-25 14:56 | disposition home or self-care (01) ==
LOC: ANHGOSHLAB 14:57
PROVIDERS: PCP Family Medicine; Visit Provider Family Medicine
DX: E11.65 Type 2 diabetes mellitus with hyperglycemia (principal)
CPT/HCPCS: 36415; 80048; 80061; 82607; 83036

== ENCOUNTER 2024-06-25 00:35 | Day surgery (SDC) | payer OTHER, SELFPAY ==
[2024-06-18 14:29] VITALS: BMI 37.2
--- OUTSIDE RECORDS SUMMARY | 2024-06-25 00:37 | XMS_ITS | Clinical Summary ---
Author Organization [facility] Address [address] & [place] [address] Care Team Providers Care Research Recruiter Name Role Phone Zahra Berg MD Primary Care Provider [phone] Allergies No known active allergies Medications lisinopril (ZESTRIL) 5 mg tablet Take 1 Tablet by mouth daily. 5 Active fluticasone propionate (FLONASE) 50 mcg/spray [place], Suspension nasal inhaler Administer 1 [place] in each nostril daily. 0 9 Active OTHER MEDI DUOMED SOCKS 71007 XXL Duomed [place] Calf CLosed Toe Black 1 Each 2 04/02/2019 3:41 PM EMERGENCY DEPARTMENT 0 Active (MODERNA) covid 19 vaccine - EMERGENCY USE AUTHORIZATION, mRNA-1273(PF) 100 mcg/0.5 mL IM suspension Inject 0.5 mL (100 mcg) by intramuscular injection every 28 days. 0.5 mL 1 06/14/2020 3:17 PM CDT 1 Active Active Problems No known active problems Immunizations Immunization Administration Dates Next Due (SPIKEVAX) (12 YRS UP PRIMAR Y SERIES) COVID-19 VACCINE - MRNA-1273(PF) 100 MCG/0.5 ML IM SUSP 06/12/2020,05/15/2020 Family History Medical History Relation Name Comments Varicose Veins Neg Hx Social History Tobacco Use Types Packs/Day Years Used Date Smoking Tobacco: Former Cigarettes Smokeless Tobacco: Never Sex and Gender Information Value Date Recorded Sex Assigned at Not on file Legal Sex Male 4:23 AM EMERGENCY DEPARTMENT Gender Identity Not on file Sexual Orientation Not on file Last Filed Vital Signs Vital Sign Reading Time Taken Comments Blood Pressure 106/82 02/17/2019 4:06 PM EMERGENCY DEPARTMENT Pulse 90 02/17/2019 4:06 PM EMERGENCY DEPARTMENT Temperature - - Respiratory Rate - - Oxygen Saturation 98% 02/17/2019 4:06 PM EMERGENCY DEPARTMENT Inhaled Oxygen Concentration - - Weight 150.2 kg (331 lb 1.6 oz) 02/17/2019 4:06 PM EMERGENCY DEPARTMENT Height 200.7 cm (6' 7 ) 02/17/2019 4:06 PM EMERGENCY DEPARTMENT Body Mass Index 37.3 02/17/2019 4:06 PM EMERGENCY DEPARTMENT Plan of Treatment Health Maintenance Due Date Last Done Comments DTAP/TDAP/TD VACCINES (1 - Tdap) 1987 HEPATITIS B VACCINES (1 of 3 - 19+ 3-dose series) 1987 COLORECTAL SCREENING 2013 Colorectal Cancer Screening 2013 FIT-DNA Q 3 years 2013 FIT/FOBT Q 1 year 2013 Flex Sig/CT Colonography Q 5 years 2013 ZOSTER VACCINE (1 of 2) 2018 INFLUENZA VACCINE (#1) 2023 COVID-19 Vaccine (3 - 2023-2 5 season) 2023 06/12/2020, 05/15/2020 PNEUMOCOCCAL VACCINE 0-49 YEARS Aged Out No longer eligible b ased on patient's age to complete this topic Insurance [facility] OPEN ACCESS O [facility] [place] [address] RX [employer] RX Member Subscriber Plan / Payer ( fective 2020-Present) Name:Los Mccarthyshahana Krishnan Relation to Subscriber:Self Name:IsaacjoseloyoHossein Payer ID:Not on file Group ID:[id number] Type:RX Commercial Address: [address] RX [employer] RX Member Subscriber Plan / Payer ( fective 2020-Present) Name:Hossein Mccarthy Relation to Subscriber:Self Name:Hossein Mccarthy Payer ID:Not on file Group ID:[id number] Type:RX Commercial Address: [address] [facility] [place] [address] Care Teams Research Recruiter Relationship Specialty Start Date End Date Zahra Berg MD PCP - General Family Practice 12/25/18
--- OUTSIDE RECORDS SUMMARY | 2024-06-25 00:37 | XMS_ITS | Encounter Summary ---
Author Organization [email or web address] Address 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
--- OUTSIDE RECORDS SUMMARY | 2024-06-25 00:37 | XMS_ITS | Encounter Summary ---
Author Organization [employer] Address 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
--- OUTSIDE RECORDS SUMMARY | 2024-06-25 00:37 | XMS_ITS | Encounter Summary ---
Author Organization [facility] Address [address] [place] [address] Care Team Providers Care Research Subject Name Role Phone Zahra Berg MD Primary Care Provider [phone] [phone] Encounter Details Date Type Department Care Team (Late st Contact Info) Description 02/19/2003 Outpatient Historical [facility] Family Medicine - [facility] [address] [place] [address] Wilberto Muhammad MD [address] 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
--- OUTSIDE RECORDS SUMMARY | 2024-06-25 00:37 | XMS_ITS | Encounter Summary ---
Author Organization [facility] Address [address] [place] [address] Care Team Providers Care Cfd Engineer Name Role Phone Zahra Berg MD Primary Care Provider [phone] [phone] Encounter Details Date Type Department Care Team (Late st Contact Info) Description 10/07/2002 Outpatient Historical [facility] Family Medicine - 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
[2024-06-25 11:08] VITALS: BP 149/91; PULSE 78; RESP 18; TEMP 36; O2SAT 100; BMI 39.0
[2024-06-25] MEDS: LACTATED RINGERS 1,000 ML 150 ML IV CONT (11:34)
--- NOTE | 2024-06-25 12:22 | WPDANESEPPF ---
Anes - Initial Pre Proc Eval Procedure: Operation Date: 06/25/24 12:30 Proposed Procedures p Screening Colonoscopy - Clifford Smallwood MD Date/Time: 06/25/24 12:22 Surgeon: Clifford Smallwood MD Pre Op Diagnosis: malignant neoplasm of colon Patient Data Age: 54 Gender: M Height: 2.01 m Weight: 157.2 kg Last Vital Signs Temp 36.0 C L 06/25/24 11:08 Pulse 78 06/25/24 11:08 Resp 18 06/25/24 11:08 BP 149/91 H 06/25/24 11:08 Pulse Ox 100 06/25/24 11:08 O2 Del Method Room Air 06/25/24 11:08 Allergies Allergy/AdvReac Type Severity Reaction Status Date / Time latex AdvReac Mild Rash Verified 06/25/24 11:07 Home Medications ?Medication ?Instructions ?Recorded ?Confirmed ?Type blood-glucose sensor (FreeStyle #6 ea 06/13/23 10/25/23 Rx Nery 3 Sensor device) blood-glucose,saw handle assembler,cont #1 ea 06/13/23 04/21/24 Rx (FreeStyle Nery 3 [place]) mecobalamin (vitamin B12) 1,000 1,000 mcg PO DAILY #90 tabs 06/13/23 06/18/24 Rx mcg chewable tablet lisinopril 5 mg tablet 5 mg PO DAILY 07/12/23 06/18/24 History finasteride 5 mg tablet 5 mg PO DAILY 10/25/23 06/18/24 History sildenafil (pulm.hypertension) 20 See Rx Instructions .Route 03/06/24 06/18/24 Rx mg tablet .COMPLEX #40 tabs Patient hx anesthesia problems: none Family hx anesthesia problems: none Results Review: All pre-operative results and documents have been reviewed as part of the pre-operative evaluation. [facility] Past Medical History Medical History Essential hypertension ELVIA (acute kidney injury) Type 2 diabetes mellitus with hyperglycemia BMI 40.0-44.9, adult Allergies Surgical History Surgical History Hx of cystoscopy Family History Family History Father Hypertension Diabetes mellitus Mother Diabetes mellitus Hypertension Other Essential hypertension Social History Social History Smoking packs per day: 0.5 Smoking cigarettes per day: 10.0 Years smoked: 5 Smoking pack-years: 2.50 Smoking status: Former smoker Tobacco type: cigarettes Second hand tobacco smoke exposure: No Alcohol intake: current Drinks per week: 1 Alcohol use details: very rarely Substance use: never Substance use type: does not use Do You Feel Safe in your Home?: Yes Lack of Transportation: No Lack of Food: Never True Current Housing: I Have Housing Concerned About Future Housing: No Difficulty Paying Gas/Electric Bills: No Difficulty Paying for Meds: No Currently Unemployed: No Education: Bachelor's Degree Difficulty w/ Childcare or Family Care: No Living arrangements: with family Gender identity (if verbalized by the patient): Male Additional gender identity comments: engaged Sexual Orientation (if Verbalized by the Patient): Straight or Heterosexual Spiritual care concerns: No Anes - Eval Final PreProcedure Day of Procedure 06/25/24 12:22 Patient weight: obese Heart: regular rate and rhythm Lungs: clear to auscultation Airway: Mallampati scale class II Neurological: alert and oriented Last oral intake: >/= 8 hours ASA classification: III Emergent: no Anesthetic plan: proceed Anesthesia type and monitoring: general GIVS and standard monitoring Results Review: All pre-operative results and documents have been reviewed as part of the pre-operative evaluation. Informed Consent: The patient's anesthetic plan and its attendant risks and benefits were discussed with the patient/family/POA. Questions were solicited and answers provided to the satisfaction of the patient/family/POA.
--- NOTE | 2024-06-25 12:27 | PM.IMHP ---
H&P: HPI History of Present Illness Date/Time: 06/25/24 12:27 Chief Complaint: screening colonoscopy Narrative: This is the patient's first colonoscopy. There are no GI symptoms and there is no family history of colorectal cancer. Review of Systems Review of Systems: All systems reviewed & are unremarkable except as noted in HPI and below PMFSH Past Medical History Medical History Essential hypertension ELVIA (acute kidney injury) Type 2 diabetes mellitus with hyperglycemia BMI 40.0-44.9, adult Allergies Surgical History Surgical History Hx of cystoscopy Family History Family History Father Hypertension Diabetes mellitus Mother Diabetes mellitus Hypertension Other Essential hypertension Social History Social History Smoking packs per day: 0.5 Smoking cigarettes per day: 10.0 Years smoked: 5 Smoking pack-years: 2.50 Smoking status: Former smoker Tobacco type: cigarettes Second hand tobacco smoke exposure: No Alcohol intake: current Drinks per week: 1 Alcohol use details: very rarely Substance use: never Substance use type: does not use Do You Feel Safe in your Home?: Yes Lack of Transportation: No Lack of Food: Never True Current Housing: I Have Housing Concerned About Future Housing: No Difficulty Paying Gas/Electric Bills: No Difficulty Paying for Meds: No Currently Unemployed: No Education: Bachelor's Degree Difficulty w/ Childcare or Family Care: No Living arrangements: with family Gender identity (if verbalized by the patient): Male Additional gender identity comments: engaged Sexual Orientation (if Verbalized by the Patient): Straight or Heterosexual Spiritual care concerns: No Meds Home Medications and Allergies Home Medications ?Medication ?Instructions ?Recorded ?Confirmed ?Type blood-glucose sensor (FreeStyle #6 ea 06/13/23 10/25/23 Rx Nery 3 Sensor device) blood-glucose,storage 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,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 #1 ea 06/13/23 04/21/24 Rx (FreeStyle Nery 3 [place]) mecobalamin (vitamin B12) 1,000 1,000 mcg PO DAILY #90 tabs 06/13/23 06/18/24 Rx mcg chewable tablet lisinopril 5 mg tablet 5 mg PO DAILY 07/12/23 06/18/24 History finasteride 5 mg tablet 5 mg PO DAILY 10/25/23 06/18/24 History sildenafil (pulm.hypertension) 20 See Rx Instructions .Route 03/06/24 06/18/24 Rx mg tablet .COMPLEX #40 tabs Allergies Allergy/AdvReac Type Severity Reaction Status Date / Time latex AdvReac Mild Rash Verified 06/25/24 11:07 Vital Signs Vital Signs - 24 hr 06/25/24 11:08 Temperature 96.8 F L Pulse Rate 78 Respiratory Rate 18 Blood Pressure 149/91 H Pulse Oximetry 100 Oxygen Delivery Room Air Exam Const: General: cooperative and healthy appearing Resp: Effort & Inspection: normal respiratory effort and able to speak in complete sentences Auscultation: clear to auscultation bilaterally Cardio: Rate: regular rate Rhythm: regular rhythm GI: Inspection: normal to inspection GI Palp: No No hepatosplenomegaly present Auscultation: normal bowel sounds Rectal Exam: deferred Skin: General skin exam: normal color Psych: Appearance: grossly normal Mental Status: mental status grossly normal Assessment and Plan Assessment and plan (1) Encounter for screening colonoscopy: Code(s): Z12.11 - Encounter for screening for malignant neoplasm of colon Status: Acute Assessment and Plan: The patient is deemed a good candidate for the procedure. Consent signed. Will proceed.
[2024-06-25 12:47] VITALS: BP 154/100; PULSE 66; RESP 16; O2SAT 100
[2024-06-25 12:57] VITALS: BP 145/92; PULSE 64; RESP 19; O2SAT 97
[2024-06-25 13:07] VITALS: BP 138/85; PULSE 61; RESP 16; O2SAT 99
== END 2024-06-25 13:18 | disposition home or self-care (01) ==
PROVIDERS: PCP Family Medicine; Referring Provider Student in an Organized Health Care Education/Training Program; Visit Provider Internal Medicine Gastroenterology
PROC: 0DJD8ZZ Inspection of Lower Intestinal Tract, Via Natural or Artificial Opening Endoscopic (ICD-10-PCS; CPT 45378; principal; 2024-06-25 12:30)
DX: Z12.11 Encounter for screening for malignant neoplasm of colon (principal); K57.30 Diverticulosis of large intestine without perforation or abscess without bleeding; D17.5 Benign lipomatous neoplasm of intra-abdominal organs; K64.8 Other hemorrhoids; Z87.891 Personal history of nicotine dependence; E66.9 Obesity, unspecified; Z68.39 Body mass index [BMI] 39.0-39.9, adult
CPT/HCPCS: 45378; J2003; J2704; J7120

== ENCOUNTER 2024-10-28 11:42 | Outpatient (CLI) | payer OTHER, SELFPAY ==
--- OUTSIDE RECORDS SUMMARY | 2024-10-28 12:10 | XMS_ITS | Clinical Summary ---
Author Organization [facility] [employer] Address [address] [place] [address] Care Team Providers Care Escrow Officer Name Role Phone Zahra Berg MD Primary Care Provider [phone] Allergies No known active allergies Medications lisinopril (ZESTRIL) 5 mg tablet Take 1 Tablet by mouth daily. 5 Active fluticasone propionate (FLONASE) 50 mcg/spray [place], Suspension nasal inhaler Administer 1 [place] in each nostril daily. 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 Gender Identity Not on file Sexual Orientation Not on file Last Filed Vital Signs Vital Sign Reading Time Taken Comments Blood Pressure 106/82 02/17/2019 4:06 PM CLAY PROCESSING LABOURER Pulse 90 02/17/2019 4:06 PM CLAY PROCESSING LABOURER Temperature - - Respiratory Rate - - Oxygen Saturation 98% 02/17/2019 4:06 PM CLAY PROCESSING LABOURER Inhaled Oxygen Concentration - - Weight 150.2 kg (331 lb 1.6 oz) 02/17/2019 4:06 PM CLAY PROCESSING LABOURER Height 200.7 cm (6' 7) 02/17/2019 4:06 PM CLAY PROCESSING LABOURER Body Mass Index 37.3 02/17/2019 4:06 PM CLAY PROCESSING LABOURER Plan of Treatment Health Maintenance Due Date Last Done Comments DTAP/TDAP/TD VACCINES (1 - Tdap) 1987 HEPATITIS B VACCINES (1 of 3 - 19+ 3-dose series) 1987 COLORECTAL SCREENING 2013 Colorectal Cancer Screening 2013 FIT-DNA Q 3 years 2013 FIT/FOBT Q 1 year 2013 Flex Sig/CT Colonography Q 5 years 2013 ZOSTER VACCINE (1 of 2) 2018 COVID-19 Vaccine ( season) 11/11/202305/2020, 05/15/2020 INFLUENZA VACCINE (#1) 2024 Insurance [facility] OPEN ACCESS O RX [employer] RX Member Subscriber Plan / Payer (Ef fective 2020-Present) Name:Isaacjoseloyo Hossein E Relation to Subscriber:Self Name:Isaacjoseloyo Hossein Krishnan Payer ID:Not on file Group ID:[id number] Type:RX Commercial Address: [address] RX [employer] RX Member Subscriber Plan / Payer ( fective 2020-Present) Name:IsaacHossein uribe Relation to Subscriber:Self Name:IsaacjoseloLos ramshahana Krishnan Payer ID:Not on file Group ID:[id number] Type:RX Commercial Address: [address] [facility] [place] [address] Care Teams Escrow Officer Relationship Specialty Start Date End Date Zahra Berg MD PCP - General Family Practice 12/25/18
--- OUTSIDE RECORDS SUMMARY | 2024-10-28 12:10 | XMS_ITS | Encounter Summary ---
Author Organization [employer] Address [address] [place] [address] Care Team Providers Care Case Management Specialist Name Role Phone Zahra Berg MD Primary Care Provider [phone] Encounter Details Date Type Department Care Team (Latest Contact Info) Description 11/25/2002 Outpatient Historical [facility] Ata Minor MD [address] [place] [address] [address] [place] [address] [address] [facility] ING HERNIA W OBST (Primary Dx) Social History Tobacco Use Types Packs/Day Years Used Date Smoking Tobacco: Never Assessed Sex and Gender Information Value Date Recorded Sex Assigned at Not on file Legal 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
--- OUTSIDE RECORDS SUMMARY | 2024-10-28 12:10 | XMS_ITS | Encounter Summary ---
Author Organization [facility] Address [address] [place] [address] Care Team Providers Care Therapy Coordinator Name Role Phone Zahra Berg MD Primary Care Provider [phone] Encounter Details Date Type Department Care Team (Late st Contact Info) Description 10/07/2002 Outpatient Historical [facility] Family Medicine - [facility] [address] [place] [address] Wilberto Muhammad MD [address] [facility] [address] [place] [id number] Social History Tobacco Use Types Packs/Day Years Used Date Smoking Tobacco: Never Assessed Sex and Gender Information Value Date Recorded Sex Assigned at Not on file Legal 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
--- OUTSIDE RECORDS SUMMARY | 2024-10-28 12:10 | XMS_ITS | Encounter Summary ---
Author Organization [employer] Address 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
--- OUTSIDE RECORDS SUMMARY | 2024-10-28 12:10 | XMS_ITS | Encounter Summary ---
Author Organization [facility] Address [address] [place] [address] Care Team Providers Care Trade Union Secretary Name Role Phone Zahra Berg MD Primary Care Provider [phone] Encounter Details Date Type Department Care Team (Late st Contact Info) Description 02/19/2003 Outpatient Historical [facility] Family Medicine - [facility] [address] [place] [address] Wilberto Muhammad MD [address] [facility] [address] [place] [id number] Social History Tobacco Use Types Packs/Day Years Used Date Smoking Tobacco: Never Assessed Sex and Gender Information Value Date Recorded Sex Assigned at Not on file 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
[2024-10-28 12:57] LABS: Hematocrit 49.8 % (42.0-52.0); Hemoglobin 16.0 g/dL (14.0-18.0); Immature Granulocyte Percent A 1.5 % (0-0.5); Lymphocytes Absolute Auto 1.59 K/mm3 (0.9-3.2); Mean Corpuscular HGB Conc 32.1 g/dl (32-36); Mean Corpuscular Hemoglobin 28.6 pg (26-34); Mean Corpuscular Volume 89.1 fl (80-100); Nucleated Red Blood Cells Absolute Auto 0.000 K/mm3 (0.0-0.012); Nucleated Red Blood Cells Perc 0.0 % (0.0-0.2); Platelet Count Result 212 k/mm3 (150-375); Red Blood Count 5.59 M/mm3 (4.6-6.20); White Blood Count 5.5 K/mm3 (4.5-10.0)
[2024-10-28 14:15] LABS: Hemoglobin A1C 5.8 % (<5.7)
[2024-10-28 17:39] LABS: Alanine Aminotransferase 26 U/L (6-50); Albumin Level 4.1 g/dL (3.5-5.1); Alkaline Phosphatase 84 U/L (38-126); Anion Gap 7 mmol/L (4-12); Aspartate Amino Transferase 51 U/L (17-59); Bilirubin,Total 0.6 mg/dL (0.2-1.3); Blood Urea Nitrogen 26 mg/dL (9-20); Calcium 9.3 mg/dL (8.4-10.2); Carbon Dioxide 25 mmol/L (22-30); Chloride 104 mmol/L (98-107); Cholesterol 199 mg/dL (0-200); Estimated Glomerular Filt Rate 58; Glucose 99 mg/dL (65-110); HDL Direct 36 mg/dL; Potassium 4.8 mmol/L (3.4-5.0); Sodium 136 mmol/L (137-145); Total Protein 7.5 g/dL (6.3-8.2); Triglycerides 100 mg/dL (<150)
[2024-10-28 18:18] LABS: Thyroid Stimulating Hormone 4.670 uIU/mL (0.465-4.680)
== END 2024-10-28 11:43 | disposition home or self-care (01) ==
LOC: ANHGOSHLAB 11:43
PROVIDERS: PCP Family Medicine; Visit Provider Student in an Organized Health Care Education/Training Program
DX: Z00.00 Encounter for general adult medical examination without abnormal findings (principal)
CPT/HCPCS: 36415; 80053; 80061; 83036; 84443; 85025